=== PATIENT | female | born 1945 | race Hispanic/Latino ===

== ENCOUNTER 2016-10-10 10:12 | Outpatient (CLI) | payer OTHER ==
--- NOTE | 2016-10-10 11:43 | XRay Report ---
RIGHT SHOULDER RADIOGRAPHS INDICATION: Lumbar radiculopathy. COMPARISON: None similar. FINDINGS: Frontal and Y views of the right shoulder demonstrate intact glenohumeral articulation. Somewhat downsloping acromion with decreased acromiohumeral distance. AC joint though intact with approximately 8 mm ossific density superiorly. Bilateral cervical pedicle rods and screws fusion hardware with decompression noted. Clear imaged right lung and ribs. Thoracic spondylosis. Possible osteopenia. CONCLUSION: No acute right shoulder radiographic abnormality, though few degenerative and postsurgical changes noted, as described. Thank you for the opportunity to participate in this patient's care.
--- NOTE | 2016-10-10 11:45 | XRay Report ---
RIGHT FOOT RADIOGRAPHS INDICATION: Right ankle and foot pain. COMPARISON: None similar. FINDINGS: AP, lateral and oblique views of the right foot demonstrate intact bones, joints and soft tissues. Small dorsal calcaneal spur. Bony demineralization. CONCLUSION: No acute right foot radiographic abnormality. Thank you for the opportunity to participate in this patient's care.
--- NOTE | 2016-10-10 14:39 | XRay Report ---
LUMBAR SPINE RADIOGRAPHS: INDICATION: Right shoulder pain. COMPARISON: 10/31/2009 lumbar spine report. FINDINGS: AP, lateral and oblique lumbar spine radiographs suggest approximately 5 mm anterolisthesis of L4 over L5. Intervertebral disc maintainers at L4-5 also appear stable by description. Mid to lower lumbar facet arthropathy. Normal remainder vertebral body stature and alignment. Multilevel degenerative spurring and disc narrowing, more so lower thoracic. Clear visualized lung bases. Nonobstructive bowel gas pattern. Atherosclerotic aortic calcifications. Osteopenia/osteoporosis. No evidence of pars defect. CONCLUSION: No acute lumbar spine radiographic abnormality with various degenerative changes and L4-L5 postsurgical changes, as described. Thank you for the opportunity to participate in this patient's care.
== END 2016-10-10 10:13 | disposition home or self-care (01) ==
LOC: XRAY 10:12
PROVIDERS: ATTEND Anesthesiology Pain Medicine
DX: M47.26 Other spondylosis with radiculopathy, lumbar region (principal); M77.31 Calcaneal spur, right foot; M12.88 Other specific arthropathies, not elsewhere classified, other specified site; I70.0 Atherosclerosis of aorta; M47.894 Other spondylosis, thoracic region; M25.511 Pain in right shoulder; I10 Essential (primary) hypertension; F41.9 Anxiety disorder, unspecified; F17.200 Nicotine dependence, unspecified, uncomplicated
CPT/HCPCS: 72110